=== PATIENT | female | born 1990 | race Caucasian/White ===

== ENCOUNTER 2017-05-16 11:29 | Outpatient (CLI) | payer OTHER ==
[~2017-05-16] VITALS: Ht 160 cm; Wt 63.0 kg
[~2017-05-16 11:29] MED LIST: IRON1TAB75 BU; LEVO500T10 PO; METR500T14 PO; PREN-39 PO; PREN1TAB17 BU
[2017-05-16 12:08] VITALS: BP 97/57; PULSE 60; RESP 18; Ht 160 cm; Wt 63.0 kg
[2017-05-16 12:54] LABS: URINE BLOOD (Dip) POC Negative (NEGATIVE)
[2017-05-16] MEDS ORDERED: TERBUTALINE 1 MG/ML INJ SC ONE (13:00)
[2017-05-16] MEDS ORDERED: LACTATED RINGER'S 1,000 ML IV SCH (13:00)
[2017-05-16] MEDS ORDERED: BETAMET NA PHOS/AC(6 MG/ML) 5ML INJ IM ONE (13:00)
[2017-05-16] MEDS ORDERED: LACTATED RINGER'S 1,000 ML IV ONE (13:00)
[2017-05-16] MEDS ORDERED: TERBUTALINE 1 ML ONE (13:09)
[2017-05-16 13:38] LABS: ADD SCAN DIFF NO
[2017-05-16 13:42] LABS: BASOPHILS % 0.4 % (0.0-2.0); EOSINOPHILS # 0.1 10^3/ul (0.0-0.5); EOSINOPHILS % 1.2 % (0.0-7.0); HEMATOCRIT 28.3 % (37.0-47.0); HEMOGLOBIN 9.7 g/dl (12.0-16.0); LYMPHOCYTES # 1.9 10^3/ul (0.8-2.9); LYMPHOCYTES % 36.6 % (15.0-51.0); MEAN CORPUSCULAR HEMOGLOBIN 29.8 pg (29.0-33.0); MEAN CORPUSCULAR HGB CONC 34.3 g/dl (32.0-37.0); MEAN CORPUSCULAR VOLUME 86.8 fl (82.0-101.0); MEAN PLATELET VOLUME 11.8 fl (7.4-10.4); MONOCYTE # 0.4 10^3/ul (0.3-0.9); MONOCYTES % 8.6 % (0.0-11.0); NEUTROPHIL # 2.7 10^3/ul (1.6-7.5); NEUTROPHILS % 52.8 % (39.0-77.0); PLATELET COUNT 190 10^3/UL (140-415); RED BLOOD COUNT 3.26 10^6/ul (4.20-5.40); RED CELL DISTRIBUTION WIDTH 13.1 % (11.5-14.5); WHITE BLOOD COUNT 5.1 10^3/ul (4.8-10.8)
--- NOTE | 2017-05-16 14:39 | RADRPT ---
PROCEDURE: OB ultrasound for biophysical profile CLINICAL INDICATION: labor TECHNIQUE: Multiple sonographic images of the pelvis were obtained. Transabdominal views of the g ravid uterus are available for review. The images were reviewed on a PACS workstation. COMPARISON: None FINDINGS: breathing movement = 2/2 tone = 2/2 motion = 2/2 GUADALUPE = 2/2 GUADALUPE = 8.4 cm Single live intrauterine with cardiac activity of 154 bpm. position is cephal ic. The placenta is anterior. IMPRESSION: 1. Single live intrauterine gestation. 2. Biophysical profile = 8/8. 3. GUADALUPE = 8.4 cm. RPTAT: HH .Ileana Carrillo MD, MD Date Time Electronically viewed and signed by .Ileana Carrillo MD, on 05/16/2017 14:39 .G/
[2017-05-16 14:45] LABS: UR BACTERIA FEW /HPF (NONE SEEN); UR RBC 4 /HPF (0-5); UR SQUAMOUS EPITHELIAL CELL FEW /HPF (FEW)
[2017-05-16 16:02] LABS: ADD UMIC YES; UR ASCORBIC ACID NEGATIVE (NEGATIVE); UR BILIRUBIN (Dip) NEGATIVE (NEGATIVE); UR BLOOD (Dip) NEGATIVE (NEGATIVE); UR CLARITY CLOUDY (CLEAR); UR COLOR YELLOW (YELLOW); UR GLUCOSE (Dip) NEGATIVE (NEGATIVE); UR KETONES (Dip) NEGATIVE (NEGATIVE); UR LEUKOCYTE ESTERASE (Dip) 3+ Leu/ul (NEGATIVE); UR NITRITE (Dip) NEGATIVE (NEGATIVE); UR SPECIFIC GRAVITY (Dip) 1.009 (1.003-1.030); UR TOTAL PROTEIN (Dip) NEGATIVE (NEGATIVE); UR UROBILINOGEN (Dip) NEGATIVE (NEGATIVE)
--- NOTE | 2017-05-16 16:32 | TRIAGE ---
OB Triage Datetime Report Generated by CPN: 05/16/2017 16:31 Datetime: 05/16/2017 15:30 Stage of : OB Triage Maternal Assessment Level of Consciousness: Fully Conscious Labor Evaluation Frequency: NONE Monitor Mode: External Resting Tone [place]: Relaxed Heart Rate FHR Baseline Rate: 135 Monitor Mode: External US Variability: Moderate 6-25 bpm Accelerations: 15X15 Decelerations: None Pain Assessment Pain Scale: 3 Pain Presence: Intermittent Pain Type: Cramping Pain Location: Abdomen Pain Goal: 3 Pain Relief Measures: Comfort Measures Membrane Status: Intact Pool: Negative Datetime: 05/16/2017 14:30 Stage of : OB Triage Maternal Assessment Level of Consciousness: Fully Conscious Labor Evaluation Frequency: NONE Monitor Mode: External Resting Tone [place]: Relaxed Heart Rate FHR Baseline Rate: 135 Monitor Mode: External US Variability: Moderate 6-25 bpm Accelerations: 15X15 Decelerations: None Pain Assessment Pain Scale: 3 Pain Presence: Intermittent Pain Type: Cramping Pain Location: Abdomen Pain Goal: 3 Pain Relief Measures: Comfort Measures Membrane Status: Intact Pool: Negative Datetime: 05/16/2017 13:30 Stage of : OB Triage Maternal Assessment Level of Consciousness: Fully Conscious Labor Evaluation Frequency: IRREGULAR Monitor Mode: External Duration (sec)2399: 30-90 Quality: Mild Resting Tone [place]: Relaxed Heart Rate FHR Baseline Rate: 135 Monitor Mode: External US Variability: Moderate 6-25 bpm Accelerations: 15X15 Decelerations: None Category: Category I Pain Assessment Pain Scale: 3 Pain Presence: Intermittent Pain Type: Cramping Pain Location: Abdomen Pain Goal: 3 Pain Relief Measures: Comfort Measures Membrane Status: Intact Pool: Negative Datetime: 05/16/2017 12:42 Vaginal Exam Dilatation (cms): 0.0 Effacement (%): 30 Station: -3 Exam By: Dexter DELAROSA Datetime: 05/16/2017 12:37 Labor Evaluation Frequency: OCCAS Monitor Mode: External Duration (sec)2399: 50-70 Quality: Mild Pattern: Normal: <= 5 Contractions in 10 Minutes Resting Tone [place]: Relaxed Interventions: Side to Side Monitor Mode: External US Variability: Moderate 6-25 bpm Accelerations: 15X15 Decelerations: None Category: Category I Datetime: 05/16/2017 12:15 Assessment Type: Admission Assessment EGA: 35.0 Maternal Assessment Level of Consciousness: Fully Conscious DTR's/Clonus: DTRs 2+; No Clonus Headache: Denies Blurred Vision: No Respiratory Effort: Unlabored; Regular Rhythm; Equal Expansion Breath Sounds, Left: Clear and Equal Breath Sounds, Right: Clear and Equal Nausea/Vomiting: Denies RUQ Epigastric Pain: Denies Lower Extremities Edema: None Degree: None Upper Extremities Edema: None Degree: None Facial Edema: None Fall Risk Assessment History of Falling: (0) No Secondary Diagnosis: (0) No Ambulatory Aid: (0) Bedrest/Nurse Assist IV Therapy: (0) No Gait: (0) Normal/Bedrest/Immobile Mental Status: (0) Oriented to Own Ability Fall Score: 0 Fall Risk Score Definition: No Risk: No action required Datetime: 05/16/2017 12:13 Time of Arrival: 05/16/2017 11:25 Arrived By: Ambulatory Arrived From: Home Chief Complaint: uc's Movement: Present Contractions: Regular Time Contractions Began: 05/16/2017 08:00 Rupture of Membranes: Denies Vaginal Bleeding: None Vaginal Discharge: Denies Recent Sexual Intercouse: Denies Abdominal Trauma: Not Applicable Patient Complaints: Contractions; Cramping Time Provider Notified: 05/16/2017 12:48 Provider Notified: DR REED Initial Plan: BPP/CBC/TERB/UA/ BETA/ Datetime: 05/16/2017 12:02 Monitor Mode: External Monitor Mode: External US
--- NOTE | 2017-05-16 16:36 | PN ---
Triage Information Date/Time 05/16/2017 Weeks of Gestation 35+ : 3 Para: 2 Diabetes: none Hypertention: none Additional information 26 y/o female C/O onset of uterine contractions started 2 days ago became intense in AM Denies ROM and vaginal bleeding Objective Vital Signs Date Time Temp Pulse Resp B/P Pulse Ox O2 Delivery O2 Flow Rate FiO2 05/16/17 12:08 98.6 60 18 97/57 Room Air Heart Rate: 150's Heart Rate Comments reactive Contractions: 6-10 Minutes Apart Exam long/ft Results/Medications Result Diagram: 05/16/17 1315 Results 24 hrs Laboratory Tests Test 05/16/17 12:59 05/16/17 13:00 05/16/17 13:15 Bedside Urine pH (LAB) 5.5 Bedside Urine Protein (LAB) Negative Bedside Urine Glucose (UA) Negative Bedside Urine Ketones (LAB) Negative Bedside Urine Blood Negative Bedside Urine Nitrite (LAB) Negative Bedside Urine Leukocyte Esterase (L 2+ H Urine Color YELLOW Urine Clarity CLOUDY A Urine pH 5.0 Urine Specific [place] 1.009 Urine Ketones NEGATIVE Urine Nitrite NEGATIVE Urine Bilirubin NEGATIVE Urine Urobilinogen NEGATIVE Urine Leukocyte Esterase 3+ H Urine Microscopic RBC 4 Urine Microscopic WBC 25 H Urine Squamous Epithelial Cells FEW Urine Bacteria FEW A Urine Hemoglobin NEGATIVE Urine Glucose NEGATIVE Urine Total Protein NEGATIVE White Blood Count 5.1 Red Blood Count 3.26 L Hemoglobin 9.7 L Hematocrit 28.3 L Mean Corpuscular Volume 86.8 Mean Corpuscular Hemoglobin 29.8 Mean Corpuscular Hemoglobin Concent 34.3 Red Cell Distribution Width 13.1 Platelet Count 190 Mean Platelet Volume 11.8 H Neutrophils % 52.8 Lymphocytes % 36.6 Monocytes % 8.6 Eosinophils % 1.2 Basophils % 0.4 Nucleated Red Blood Cells % 0.0 Neutrophils # 2.7 Lymphocytes # 1.9 Monocytes # 0.4 Eosinophils # 0.1 Basophils # 0.0 Nucleated Red Blood Cells # 0.0 Medications Current Medications Lactated Ringer's (Lr) 1,000 ml @ 125 mls/hr Q8H IV ; Start 05/16/17 at 13:00 Assessment/Plan labor resolved by SQ terbutaline ans IV hydration Steroids given will repeat in 24 hours F/U iout patient JOHN DOHERTY MD May 16, 2017 16:35
== END 2017-05-16 16:45 | disposition home or self-care (01) ==
LOC: OBT 11:29 → L-D 11:30 → OBT 16:45
PROVIDERS: ATTEND Obstetrics & Gynecology
DX: O62.9 Abnormality of forces of labor, unspecified (principal); Z3A.35 35 weeks gestation of pregnancy
CPT/HCPCS: 76818; 81001; 85025; 96360; 96361; J0702; J3105; J7120; Z7500; 81003; G0463

== ENCOUNTER 2017-05-17 13:06 | Outpatient (CLI) | payer OTHER ==
[~2017-05-17] VITALS: Ht 160 cm; Wt 63.8 kg
[~2017-05-17 13:06] MED LIST changes: -LEVO500T10 PO; -METR500T14 PO; -PREN-39 PO
[2017-05-17 13:23] VITALS: Ht 160 cm; Wt 63.8 kg
[2017-05-17 13:24] VITALS: BP 89/53; PULSE 91; RESP 18
[2017-05-17] MEDS ORDERED: BETAMET NA PHOS/AC(6 MG/ML) 5ML INJ IM ONE (13:30)
--- NOTE | 2017-05-17 13:57 | PN ---
Triage Information Date/Time 05/17/2017 Weeks of Gestation 35.1 : 4 Para: 2 Diabetes: none Hypertention: none Additional information here for 2nd dose of betamethasone Objective Vital Signs Date Time Temp Pulse Resp B/P Pulse Ox O2 Delivery O2 Flow Rate FiO2 05/17/17 13:24 98.2 91 18 89/53 Room Air Contractions: None Assessment/Plan contractions 2nd sode of betamethsone JOHN Dietz MD May 17, 2017 13:57
--- NOTE | 2017-05-17 14:01 | TRIAGE ---
OB Triage Datetime Report Generated by CPN: 05/17/2017 14:01 Datetime: 05/17/2017 13:58 Maternal Assessment Level of Consciousness: Fully Conscious Labor Evaluation Frequency: IRREGULAR Monitor Mode: External Duration (sec)2399: 50-80 Quality: Mild Pattern: Normal: <= 5 Contractions in 10 Minutes Resting Tone [place]: Relaxed Contraction Comments: pt denies feeling uc's Heart Rate FHR Baseline Rate: 125 Monitor Mode: External US Variability: Moderate 6-25 bpm Accelerations: 15X15 Decelerations: None Category: Category I Pain Assessment Pain Scale: 0 Pain Goal: 3 Vaginal Exam Membrane Status: Intact Vaginal Bleeding: None Datetime: 05/17/2017 13:32 Assessment Type: Admission Assessment Maternal Assessment Level of Consciousness: Fully Conscious DTR's/Clonus: DTRs 2+; No Clonus Headache: Denies Blurred Vision: No Respiratory Effort: Unlabored; Regular Rhythm; Equal Expansion Breath Sounds, Left: Clear and Equal Breath Sounds, Right: Clear and Equal Nausea/Vomiting: Denies RUQ Epigastric Pain: Denies Lower Extremities Edema: None Degree: None Upper Extremities Edema: None Degree: None Facial Edema: None Fall Risk Assessment History of Falling: (0) No Secondary Diagnosis: (0) No Ambulatory Aid: (0) Bedrest/Nurse Assist IV Therapy: (0) No Gait: (0) Normal/Bedrest/Immobile Mental Status: (0) Oriented to Own Ability Fall Score: 0 Fall Risk Score Definition: No Risk: No action required Labor Evaluation Frequency: IRREGULAR Monitor Mode: External Duration (sec)2399: 50-80 Quality: Mild Pattern: Normal: <= 5 Contractions in 10 Minutes Resting Tone [place]: Relaxed Interventions: Side to Side Monitor Mode: External US Variability: Moderate 6-25 bpm Accelerations: 15X15 Decelerations: None Category: Category I Datetime: 05/17/2017 13:30 Time of Arrival: 05/17/2017 13:05 EGA: 35.1 Arrived By: Ambulatory Arrived From: Home Chief Complaint: PT CAME IN FOR 2ND DOSE OF BETAMETHASONE Movement: Present Contractions: Denies/Absent Rupture of Membranes: Denies Vaginal Bleeding: None Vaginal Discharge: Denies Recent Sexual Intercouse: Denies Abdominal Trauma: Not Applicable Patient Complaints: Other Time Provider Notified: 05/17/2017 13:45 Provider Notified: cassandra Initial Plan: NST Datetime: 05/17/2017 13:18 Monitor Mode: External Monitor Mode: External US Datetime: 05/16/2017 16:27 Stage of : OB Triage Maternal Assessment Level of Consciousness: Fully Conscious Labor Evaluation Frequency: 5UC/HR Monitor Mode: External Duration (sec)2399: 30-60 Quality: Mild Resting Tone [place]: Relaxed Heart Rate FHR Baseline Rate: 135 Monitor Mode: External US Variability: Moderate 6-25 bpm Accelerations: 15X15 Decelerations: None Pain Assessment Pain Scale: 3 Pain Presence: Intermittent Pain Type: Cramping Pain Location: Abdomen Pain Goal: 3 Pain Relief Measures: Comfort Measures Vaginal Exam Membrane Status: Intact Pool: Negative Datetime: 05/16/2017 12:15 EGA: 35.0 Fall Score: 0 Fall Risk Score Definition: No Risk: No action required
== END 2017-05-17 14:05 | disposition home or self-care (01) ==
LOC: OBT 13:06 → L-D 13:07 → OBT 14:05
PROVIDERS: ATTEND Obstetrics & Gynecology
DX: O62.9 Abnormality of forces of labor, unspecified (principal); Z3A.35 35 weeks gestation of pregnancy
CPT/HCPCS: 96372; J0702; Z7500; G0463

== ENCOUNTER 2017-06-19 13:53 | Inpatient (IN) | payer OTHER ==
[~2017-06-19] VITALS: Ht 160 cm; Wt 62.0 kg
[~2017-06-19 13:53] MED LIST changes: +FERR-49; +LEVO500T10 PO; +METR500T14 PO; +PREN-39 PO; +PREN1TAB49
[2017-06-19 14:23] VITALS: BP 109/63; PULSE 82; RESP 20
[2017-06-19 14:25] VITALS: Ht 160 cm; Wt 62.0 kg
[2017-06-19] MEDS ORDERED: OXYTOCIN 30 UNITS/LR 500 ML IV PRN (15:00)
[2017-06-19] MEDS ORDERED: LIDOCAINE 1% (MPF) 30 ML INJ INJ PRN (15:00)
[2017-06-19] MEDS ORDERED: OXYTOCIN 30 UNITS/LR 500 ML IV SCH ×2 (15:00)
[2017-06-19] MEDS ORDERED: MINERAL OIL LIGHT 10 ML VIAL TOP PRN (15:00)
[2017-06-19] MEDS ORDERED: MISOPROSTOL 200 MCG TAB PR PRN (15:00)
[2017-06-19] MEDS ORDERED: IBUPROFEN 600 MG TAB PO PRN (15:00)
[2017-06-19] MEDS ORDERED: LACTATED RINGER'S 1,000 ML IV PRN (15:00)
[2017-06-19] MEDS ORDERED: CARBOPROST 250 MCG INJ IM PRN (15:00)
[2017-06-19] MEDS ORDERED: BUTORPHANOL 2 MG INJ IV PRN (15:00)
[2017-06-19] MEDS ORDERED: METHYLERGONOVINE 0.2 MG INJ IM PRN (15:00)
[2017-06-19] MEDS: LACTATED RINGER'S 1,000 ML IV SCH ×2 (15:14→20:01)
--- NOTE | 2017-06-19 15:36 | TRIAGE ---
OB Triage Datetime Report Generated by CPN: 06/19/2017 15:36 Datetime: 06/19/2017 14:42 Stage of : OB Triage Datetime: 06/19/2017 14:10 Labor Evaluation Frequency: 6-7 Monitor Mode: External Duration (sec)2399: 50 Quality: Moderate Pattern: Normal: <= 5 Contractions in 10 Minutes Resting Tone [place]: Relaxed Heart Rate FHR Baseline Rate: 135 Monitor Mode: External US FHR Baseline Changes: No Baseline Change Variability: Moderate 6-25 bpm Accelerations: 15X15 Decelerations: None Category: Category I Pain Assessment Pain Scale: 7 Pain Presence: Intermittent Pain Type: Cramping; Contraction; Pressure Pain Location: Abdomen; Back Pain Goal: 7 Pain Relief Measures: Comfort Measures Vaginal Exam Dilatation (cms): 2.5 Effacement (%): 70 Station: -1 Exam By: JOAN PRYOR Membrane Status: Intact Vaginal Bleeding: None Cervix, Consistency: Firm Cervix, Position: Posterior Presentation 'A': Cephalic Lie 'A': Longitudinal Datetime: 06/19/2017 13:45 Time of Arrival: 06/19/2017 13:45 EGA: 39.6 Arrived By: Wheelchair Arrived From: Home Chief Complaint: UC'S Movement: Present Contractions: Regular Time Contractions Began: 06/19/2017 09:00 Contractions: 6-7 Rupture of Membranes: Denies Vaginal Bleeding: None Vaginal Discharge: Present Abdominal Trauma: Not Applicable Patient Complaints: Contractions Additional Patient Complaints: NONE Initial Plan: EFM VE CALL MD Datetime: 05/17/2017 13:32 Fall Risk Assessment Fall Score: 0 Fall Risk Score Definition: No Risk: No action required Datetime: 05/17/2017 13:30 EGA: 35.1 Datetime: 05/16/2017 12:15 EGA: 35.0 Fall Risk Assessment Fall Score: 0 Fall Risk Score Definition: No Risk: No action required
[2017-06-19 16:07] LABS: WHITE BLOOD COUNT 6.1 10^3/ul (4.8-10.8)
[2017-06-19 16:08] LABS: BASOPHILS % 0.7 % (0.0-2.0); EOSINOPHILS # 0.1 10^3/ul (0.0-0.5); EOSINOPHILS % 0.8 % (0.0-7.0); LYMPHOCYTES # 2.6 10^3/ul (0.8-2.9); MEAN CORPUSCULAR HEMOGLOBIN 29.6 pg (29.0-33.0); MEAN CORPUSCULAR HGB CONC 34.3 g/dl (32.0-37.0); MEAN CORPUSCULAR VOLUME 86.4 fl (82.0-101.0); MEAN PLATELET VOLUME 12.4 fl (7.4-10.4); MONOCYTE # 0.5 10^3/ul (0.3-0.9); MONOCYTES % 8.9 % (0.0-11.0); NEUTROPHILS % 46.1 % (39.0-77.0); PLATELET COUNT 189 10^3/UL (140-415); RED BLOOD COUNT 4.05 10^6/ul (4.20-5.40); RED CELL DISTRIBUTION WIDTH 13.6 % (11.5-14.5)
[2017-06-19 16:24] LABS: PROTIME 13.2 Sec (12.2-14.2)
[2017-06-19 16:25] LABS: PARTIAL THROMBOPLASTIN TIME 33.6 Sec (25.0-35.0)
--- NOTE | 2017-06-19 17:54 | HP ---
Date/Time of Note Date/Time of Note DATE: 06/19/17 TIME: 17:51 OB - History Hx of Present Free Text/Dictation admitted in [facility] at 39.6 weeks Chief Complaint: labor pains Last Menstrual Period: Sep 13, 2016 Estimated Due Date: Jun 20, 2017 : 4 Para: 2 Spontaneous : 1 Care: Good Care Ultrasounds: Normal mid trimester US Obstetrical Complications: None Medical Complications: None Other Concerns: PCN allergic Past Family/Social History * Past Medical, Surgical, Family and Obstetric Histories reviewed from chart. Blood Type: O+ Rubella: immune RPR/VDRL: Negative GBS Status: Negative HBsAG: Negative OB Admission Exam Vital Signs Vital Signs Vital Signs Date Time Temp Pulse Resp B/P Pulse Ox O2 Delivery O2 Flow Rate FiO2 06/19/17 14:23 97.8 82 20 109/63 98 Room Air Physical Exam HEENT: WNL Heart: Rhythm Normal Lungs: Clear, Equal Abdomen: WNL Extremities: Normal Reflexes: Normal Cervical Dilatation: 2cm Effacement: 75% Station: -3 Membranes: Intact Heart Rate: 140's Accelerations: Accelerations Present Decelerations: No Decelerations Varibility: Marked Contractions on Admission: < 5 Minutes Apart Date/Time Contractions Began: 06/19/2017 0900 AM Frequency of Contractions: q 4 Duration: >45 seconds Intensity: Moderate Last 72 hours Lab Results CBC & BMP 06/19/17 15:13 OB Assessment/Plan Other Assessment: term gestation labor pains Other plan: proceed with spontaneous labor JOHN DOHERTY MD Jun 19, 2017 17:54
[2017-06-20] MEDS: LACTATED RINGER'S 1,000 ML IV SCH (03:56)
[2017-06-20] MEDS ORDERED: FENTAnyl 2MCG/ML-ROPIV 0.2% 100 ML ONE (07:33)
[2017-06-20] MEDS ORDERED: FENTAnyl 2MCG/ML-ROPIV 0.2% 100 ML BAG EPI SCH (10:00)
[2017-06-20] MEDS ORDERED: NALOXONE (0.4 MG/ML) INJ IV PRN (10:00)
--- NOTE | 2017-06-20 11:58 | LDN ---
Date/Time of Note Date/Time of Note DATE: 06/20/17 TIME: 11:55 Delivery Summary Normal spontaneous vaginal delivery of a female over intact perineum Weeks of Gestation 40 weeks Placenta Delivered: Spontaneously, Intact & Complete Meconium: none Episiotomy: No Perineal laceration: 0 Anesthesia type: Epidural Estimated blood loss: 300 Sponge & Needle done & correct: Yes All needle counts correct: Yes Any foreign bodies felt in the: No Problems: Infant Delivery Information Apgars 1 Minute: 9 5 Minute: 9 Suctioning Nose & mouth suctioned at gl[place]: Yes Delee suction performed: No Umbilical Cord Umbilical cord with: 3 Vessels Cord presentations: nuchal cord Nuchal cord present X: 1 Cord Blood was obtained: Yes Mother & Baby Disposition Disposition Mom & Baby to Maternity; Good: Yes (Mother and baby were recovered in good condition) Mom transferred to: Other (Maternity) Baby to NICU: No JOHN DOHERTY MD Jun 20, 2017 11:58
[2017-06-20 13:20] VITALS: BP 125/62; PULSE 63; RESP 18
[2017-06-20] MEDS ORDERED: BENZOCAINE 20% 56 ML SPRAY TOP PRN (13:30)
[2017-06-20] MEDS ORDERED: DIBUCAINE 1% 30 GM OINT TOP PRN (13:30)
[2017-06-20] MEDS ORDERED: MISOPROSTOL 200 MCG TAB PR PRN (13:30)
[2017-06-20] MEDS ORDERED: ZOLPIDEM 5 MG TAB PO PRN (13:30)
[2017-06-20] MEDS ORDERED: WITCH HAZEL/GLYCERIN PAD PR PRN (13:30)
[2017-06-20] MEDS ORDERED: METHYLERGONOVINE 0.2 MG INJ IM PRN (13:30)
[2017-06-20] MEDS ORDERED: CARBOPROST 250 MCG INJ IM PRN (13:30)
[2017-06-20] MEDS ORDERED: OXYTOCIN 30 UNITS/LR 500 ML IV PRN (13:30)
[2017-06-20] MEDS ORDERED: HYDROCODONE/APAP (5/325) TAB PO PRN ×2 (13:30)
[2017-06-20] MEDS ORDERED: LANOLIN 7 GM TUBE TOP PRN (13:30)
[2017-06-20 13:50] VITALS: BP 128/65; PULSE 66; RESP 19
[2017-06-20] MEDS: CEPHALEXIN 500 MG CAP PO SCH ×3 (14:00→23:54)
[2017-06-20 16:00] VITALS: BP 129/66; PULSE 66; RESP 18
[2017-06-20] MEDS: LACTATED RINGER'S 1,000 ML IV* SCH ×2 (16:04→23:54)
[2017-06-20] MEDS: IBUPROFEN 600 MG TAB PO SCH ×2 (17:19→23:53)
[2017-06-20 19:45] VITALS: BP 93/49; PULSE 74; RESP 17
[2017-06-20] MEDS: SENNA/DOCUSATE NA (8.6MG/50MG) TAB PO SCH (20:33)
[2017-06-20] MEDS: MAGNESIUM HYDROXIDE 30ML CUP PO SCH (20:33)
[2017-06-21 00:15] VITALS: BP 90/54; PULSE 56; RESP 17
[2017-06-21 04:15] VITALS: BP 96/61; PULSE 53; RESP 16
[2017-06-21] MEDS: LACTATED RINGER'S 1,000 ML IV* SCH ×3 (05:07→21:07)
[2017-06-21] MEDS: CEPHALEXIN 500 MG CAP PO SCH ×4 (05:35→23:53)
[2017-06-21] MEDS: IBUPROFEN 600 MG TAB PO SCH ×4 (05:35→23:53)
[2017-06-21 07:20] VITALS: BP 106/61; PULSE 50; RESP 19
[2017-06-21 07:48] LABS: WHITE BLOOD COUNT 10.5 10^3/ul (4.8-10.8)
[2017-06-21 07:49] LABS: BASOPHIL # 0.1 10^3/ul (0.0-0.1); BASOPHILS % 0.5 % (0.0-2.0); EOSINOPHILS # 0.1 10^3/ul (0.0-0.5); EOSINOPHILS % 0.9 % (0.0-7.0); HEMATOCRIT 31.6 % (37.0-47.0); HEMOGLOBIN 10.3 g/dl (12.0-16.0); LYMPHOCYTES # 3.4 10^3/ul (0.8-2.9); MEAN CORPUSCULAR HGB CONC 32.6 g/dl (32.0-37.0); MEAN PLATELET VOLUME 12.4 fl (7.4-10.4); MONOCYTE # 0.8 10^3/ul (0.3-0.9); MONOCYTES % 7.5 % (0.0-11.0); NEUTROPHILS % 58.6 % (39.0-77.0); PLATELET COUNT 145 10^3/UL (140-415); RED BLOOD COUNT 3.55 10^6/ul (4.20-5.40); RED CELL DISTRIBUTION WIDTH 14.5 % (11.5-14.5)
[2017-06-21] MEDS: MAGNESIUM HYDROXIDE 30ML CUP PO SCH ×2 (09:21→21:34)
[2017-06-21] MEDS: SENNA/DOCUSATE NA (8.6MG/50MG) TAB PO SCH ×2 (09:21→21:35)
--- NOTE | 2017-06-21 14:18 | DS ---
Date/Time of Note Date/Time of Note Home on June 22 DATE: 06/21/17 TIME: 14:17 Obstetrical Discharge Record Final Diagnosis Final Diagnosis: Term delivered Other Final Diagnosis Status post vaginal delivery Vaginal Delivery Obstetrical Delivery: Spontaneous Condition on Discharge Physical Assessment Last Vitals: See nurse's notes Voiding: Yes Bowel Movement: Yes Breast: Soft, non-tender, Filling Fundus: Firm Abdomen and Incision: Soft bowel sounds present Episiotomy: Not applicable Calf Tenderness: No Patient Condition: Good JOHN DOHERTY MD Jun 21, 2017 14:18
--- NOTE | 2017-06-21 14:19 | PD.PPDC ---
ICT PROGRAMMER Discharge Instruction Provider Information Physician Information 26-year-old female had vaginal delivery Diagnosis Final Diagnosis: Status post vaginal delivery Condition Patient Condition: Good Diet Diet: Resume Regular Diet Activity/Restrictions Activity: Normal Activity May Shower Restrictions: Nothing in the Vagina Return to Work or School: Aug 07, 2017 Follow-up Follow-up with Physician: 4, Week/Weeks (In clinic) Return to clinic for OB Instructions: Breast Tenderness Depression JOHN DOHERTY MD Jun 21, 2017 14:19
[2017-06-21] MEDS ORDERED: IBUP-1542 PO (14:20)
[2017-06-21 16:09] VITALS: BP 111/69; PULSE 60; RESP 18
[2017-06-21 20:00] VITALS: BP 99/63; PULSE 75; RESP 18
[2017-06-22 04:00] VITALS: BP 99/62; PULSE 65; RESP 18
[2017-06-22] MEDS: IBUPROFEN 600 MG TAB PO SCH ×2 (05:36→12:38)
[2017-06-22] MEDS: CEPHALEXIN 500 MG CAP PO SCH ×2 (05:36→12:38)
[2017-06-22 08:10] VITALS: BP 87/56; PULSE 54; RESP 16
[2017-06-22] MEDS: MAGNESIUM HYDROXIDE 30ML CUP PO SCH (08:50)
[2017-06-22] MEDS: SENNA/DOCUSATE NA (8.6MG/50MG) TAB PO SCH (08:50)
[2017-06-22] MEDS ORDERED: DIPHTH/TET/ACEL PERTUSS (ADULT) 0.5 ML VIAL IM* ONE (09:00)
[2017-06-22] MEDS ORDERED: MEASLES,MUMPS,RUBELLA VACCINE INJ SC* ONE (09:00)
[2017-06-22] MEDS ORDERED: VARICELLA VACCINE LIVE/PF 1,350 UNIT/0.5 ML ML SC* ONE (09:00)
== END 2017-06-22 15:42 | disposition home or self-care (01) | DRG 775 ==
LOC: L-D 13:53 → OBT 13:53 → L-D 14:42 → PP1 06-20 13:17
PROVIDERS: ADMIT Obstetrics & Gynecology; ATTEND Obstetrics & Gynecology
PROC: 10E0XZZ Delivery of Products of Conception, External Approach (ICD-10-PCS; principal; 2017-06-20)
PROC: 3E033VJ Introduction of Other Hormone into Peripheral Vein, Percutaneous Approach (ICD-10-PCS; 2017-06-20)
DX: O48.0 Post-term pregnancy (principal); O69.81X0 Labor and delivery complicated by cord around neck, without compression, not applicable or unspecified; Z3A.40 40 weeks gestation of pregnancy; Z37.0 Single live birth
CPT/HCPCS: 62319; 85025; 85610; 85730; 86592; 86850; 86900; 86901; 87340; 90715; 90716; G0463; J0595; J2590; J3010; J7120

== ENCOUNTER 2018-03-21 09:49 | Emergency (ER) | END 2018-03-21 12:43 | disposition home or self-care (01) ==

== ENCOUNTER 2019-01-29 10:08 | Emergency (ER) | payer OTHER ==
[~2019-01-29] VITALS: Wt 70.0 kg
[~2019-01-29 10:08] MED LIST changes: -FERR-49; +IBUP-1542 PO; -LEVO500T10 PO; -METR500T14 PO; +NAPR-985 PO; +NITR-58 PO; -PREN-39 PO; -PREN1TAB49
[2019-01-29 10:18] VITALS: BP 113/54; PULSE 80; RESP 18
[2019-01-29] MEDS ORDERED: ONDANSETRON (ODT) 4 MG TAB ODT STA (10:31)
[2019-01-29] MEDS ORDERED: DICY10CA40 PO (10:33)
[2019-01-29] MEDS ORDERED: ONDA4TAB14 PO (10:34)
[2019-01-29] MEDS ORDERED: ACET500C5 PO (10:34)
--- NOTE | 2019-01-29 10:52 | ERD ---
ER Documentation Chief Complaint Chief Complaint DIARRHEA SINCE MONDAY HPI Patient is a 28-year-old female with no past medical history presents the ER for concerns of diarrhea times 3 days. Patient states her stools are green color, nonbloody, reports 2-3 episodes per day. She denies any fevers or chills. She denies any vomiting however she does feel nauseous. Patient states her mother also had similar symptoms have now resolved. Patient denies any recent travel. Patient denies any recent antibiotic use. Patient admits to generalized crampy abdominal pain which comes and goes. Patient denies any chest pain or shortness of breath. Patient is able to tolerate p.o. fluids and is currently drinking chocolate milk in the exam room. Patient states her last menstrual period was 01-06-19, denies . ROS All systems reviewed and are negative except as per history of present illness. Medications Home Meds Active Scripts Ondansetron (Ondansetron Odt) 4 Mg Tab.rapdis, 4 MG PO Q6H PRN for NAUSEA AND/OR VOMITING, #10 TAB Prov:DENISHA BROWNLEE PA-C 01/29/19 Acetaminophen* (Tylophen*) 500 Mg Capsule, 1 CAP PO Q6H PRN for PAIN AND OR ELEVATED TEMP, #20 CAP Prov:DENISHA BROWNLEE PA-C 01/29/19 Dicyclomine HCl (Dicyclomine HCl) 10 Mg Capsule, 10 MG PO TID PRN for ABDOMINAL CRAMPING, #15 CAP Prov:DENISHA BROWNLEE PA-C 01/29/19 Naproxen* (Naprosyn*) 500 Mg Tablet, 500 MG PO BID PRN for PAIN AND/OR INFLAMMATION, #30 TAB Prov:JAYNE CLARKE PA-C 03/21/18 Nitrofurantoin Monohyd Macrocr* (Macrobid*) 100 Mg Capsr, 100 MG PO BID for 7 Days, CAP Prov:JAYNE CLARKE PA-C 03/21/18 Ibuprofen* (Ibuprofen*) 600 Mg Tablet, 600 MG PO Q6, #30 TAB 0 Refills Prov:JOHN DOHERTY MD 06/21/17 Reported Medications Iron &Iron Asp Gly/Fa/Mv,Min38 (IRON TABLET) 1 Each Tablet, 1 EACH BU DAILY 10/10/13 Vit-Iron Fumarate-FA ( Tablet) 1 Each Tablet, 1 EACH BU DAILY 10/10/13 Allergies Allergies: Coded Allergies: Penicillins (Verified Allergy, Unknown, S/W RN- NOT ALLERGIC TO NITROFURATION, PCN= RASH AND ITCHING, 03/21/18) 06/19 - RN CALLED ( VERO)- PT STATED SHE IS NOT ALLERGIC TO NITROFURATOIN PMhx/Soc History of Surgery: No Anesthesia Reaction: No Hx Neurological Disorder: No Hx Respiratory Disorders: No Hx Cardiac Disorders: No Hx Psychiatric Problems: No Hx Miscellaneous Medical Probl: No Hx Alcohol Use: No Hx Substance Use: No Hx Tobacco Use: No Smoking Status: Never smoker FmHx Family History: No diabetes Physical Exam Vitals Vital Signs Date Temp Pulse Resp B/P (MAP) Pulse Ox O2 O2 Flow FiO2 Time Delivery Rate 01/29/19 98.1 80 18 113/54 99 10:18 (73) Physical Exam GENERAL: Well-developed, well-nourished female. Appears in no acute distress. Speaking in full sentences,. HEAD: Normocephalic, atraumatic. EYES: Pupils are equally reactive bilaterally. EOMs grossly intact. No conjunctival erythema. ENT: Moist mucous membranes. No uvula deviation. No kissing tonsils. NECK: Supple. No meningismus. Normal range of motion of the neck. LUNG: Clear to auscultation bilaterally. No rhonchi, wheezing, rales or coarse breath sounds. HEART: Regular rate and rhythm. No murmurs, rubs or gallops. ABDOMEN: Soft, and nondistended. Minimally tender to palpation in all 4 quadrants. Positive bowel sounds in all four quadrants. No rebound tenderness, no guarding. (-) McBurney's point tenderness. No CVA tenderness. EXTREMITIES: Equal pulses bilaterally. No peripheral clubbing, cyanosis or edema. No unilateral leg swelling. NEUROLOGIC: Alert and oriented. Moving all four extremities without any diffi culty. Normal speech. Steady gait. SKIN: Normal color. Warm and dry. No rashes or lesions. Results 24 hrs Current Medications Medications Dose Sig/Rubin Start Time Status Last (Trade) Ordered Route PRN Stop Time Admin Dose Reason Admin Dicyclomine 10 mg ONCE ONCE 01/29/19 01/29/19 HCl PO 11:00 01/29/19 10:45 (Bentyl) 11:01 Ondansetron 4 mg ONCE STAT 01/29/19 DC 01/29/19 HCl (Zofran ODT 10:31 01/29/19 10:45 Odt) 10:32 Procedures/MDM MEDICAL DECISION MAKING: This is a 28-year-old female who presents to the ER for concerns of generalized abdominal pain and diarrhea times 3 days. Patient denies any fevers. Vital signs were reviewed. Patient is afebrile. On abdominal exam, patient had mild generalized tenderness in all 4 quadrants. Patient had no rebound or guarding. Patient is tolerating p.o. fluids without any difficulty. Patient was given Zofran here in the ER for her nausea. Patient was also given Bentyl for her abdominal cramps. Patient was advised to stay hydrated and avoid dairy products. Patient was advised on BRAT diet. Patient advised to follow-up with primary care physician if diarrhea persists for stool studies on outpatient basis. Patient likely has a viral gastroenteritis. Differential diagnosis included but was not limited to acute coronary syndrome, AAA, mesenteric isc hemia, lower lobe pneumonia, DKA, bowel perforation, cholecystitis, choledocholithiasis, ascending cholangitis, hepatic abscess, pancreatitis, PUD, gastritis, GERD, splenic rupture, diverticulitis, UTI, pyelonephritis, nephrolithiasis, appendicitis, constipation, , ectopic , PID, ovarian torsion or tubo-ovarian abscess. Patient was nontoxic, [id number] prior to discharge. PRESCRIPTIONS: Bentyl, Zofran, Tylenol DISCHARGE: At this time, patient is stable for discharge and outpatient management. I have instructed the patient to follow-up with his/her primary care physician in 1-2 days. I have instructed the patient to promptly return to the ER at any time for any new or worsening symptoms including increased pain, nausea, vomiting, diarrhea, fever, weakness or LOC. The patient and/or family expressed understanding of and agreement with this plan. All questions were answered. Home care instructions were provided. Disclaimer: Inadvertent spelling and grammatical errors are likely due to EHR/dictation software use and do not reflect on the overall quality of patient care. Also, please note that the electronic time recorded on this note does not necessarily reflect the actual time of the patient encounter. Departure Diagnosis: Primary Impression: Diarrhea Diarrhea type: unspecified type Qualified Codes: R19.7 - Diarrhea, unspecified Condition: Fair Patient Instructions: Treating Diarrhea Referrals: [facility] YOU HAVE RECEIVED A MEDICAL SCREENING EXAM AND THE RESULTS INDICATE THAT YOU DO NOT HAVE A CONDITION THAT REQUIRES URGENT TREATMENT IN THE EMERGENCY DEPARTMENT. FURTHER EVALUATION AND TREATMENT OF YOUR CONDITION CAN WAIT UNTIL YOU ARE SEEN IN YOUR DOCTORS OFFICE WITHIN THE NEXT 1-2 DAYS. IT IS YOUR RESPONSIBILITY TO MAKE AN APPOINTMENT FOR FOLOW-UP CARE. IF YOU HAVE A PRIMARY DOCTOR --you should call your primary doctor and schedule an appointment IF YOU DO NOT HAVE A PRIMARY DOCTOR YOU CAN CALL OUR PHYSICIAN REFERRAL HOTLINE AT IF YOU CAN NOT AFFORD TO SEE A PHYSICIAN YOU CAN CHOSE FROM THE FOLLOWING [facility] [address] [facility]. [facility] [address] [facility]. [facility] [address] [facility] [address] [facility] [facility] [address] [facility]. [facility] [address] [facility]. [facility] YOU HAVE RECEIVED A MEDICAL SCREENING EXAM AND THE RESULTS INDICATE THAT YOU DO NOT HAVE A CONDITION THAT REQUIRES URGENT TREATMENT IN THE EMERGENCY DEPARTMENT. FURTHER EVALUATION AND TREATMENT OF YOUR CONDITION CAN WAIT UNTIL YOU ARE SEEN IN YOUR DOCTORS OFFICE WITHIN THE NEXT 1-2 DAYS. IT IS YOUR RESPONSIBILITY TO MAKE AN APPOINTMENT FOR FOLOW-UP CARE. IF YOU HAVE A PRIMARY DOCTOR --you should call your primary doctor and schedule and appointment IF YOU DO NOT HAVE A PRIMARY DOCTOR YOU CAN CALL OUR PHYSICIAN REFERRAL HOTLINE AT . IF YOU CAN NOT AFFORD TO SEE A PHYSICIAN YOU CAN CHOSE FROM THE FOLLOWING [facility] INSTITUTIONS: [facility] [address] [place] [address] [facility] [address] [place] [address] [facility] + [facility] [address] [place] [address] Additional Instructions: If you continue to have diarrhea and 2-3 days for now, follow-up with your primary care physician for stool studies on outpatient basis. Call your primary care doctor TOMORROW for an appointment during the next 1-2 days.See the doctor sooner or return here if your condition worsens before your appointment time. DENISHA BROWNLEE PA-C Jan 29, 2019 10:52
[2019-01-29] MEDS ORDERED: DICYCLOMINE 10 MG CAP PO ONE (11:00)
== END 2019-01-29 11:28 | disposition home or self-care (01) ==
LOC: FTE 10:08
DX: R19.7 Diarrhea, unspecified (principal); R11.0 Nausea
CPT/HCPCS: Z7502; Z7610; 99283

== ENCOUNTER 2019-01-31 09:34 | Emergency (ER) | payer OTHER ==
[~2019-01-31] VITALS: Ht 162.6 cm; Wt 62.6 kg
[~2019-01-31 09:34] MED LIST changes: +ACET500C5 PO; +DICY10CA40 PO; +ONDA4TAB14 PO
[2019-01-31 09:42] VITALS: Ht 162.6 cm; Wt 62.6 kg
[2019-01-31] MEDS ORDERED: BELLADONNA/PHENOBARBITAL TAB PO STA (11:59)
[2019-01-31] MEDS ORDERED: SOD CHLORIDE 0.9% 1,000 ML IV STA (11:59)
[2019-01-31] MEDS ORDERED: LIDOCAINE/MYLANTA 40 ML BTL PO STA (11:59)
--- NOTE | 2019-01-31 12:05 | ERD ---
ER Documentation Chief Complaint Chief Complaint abd/pain,diarrhea x 6 days, was here last monday same complaint HPI 28-year-old female presents with complaint of diarrhea and diffuse abdominal pain for the past 6 days. Patient was just here 2 days ago with same complaint but states that the medication she is getting have not been working. States the abdominal pain is located in the lower abdomen. In addition she states that there is some blood in her diarrhea. Able to hold down liquids without problem. Denies history of travel. Denies any vomiting, fevers, dysuria, vaginal discharge. Allergic to penicillin. History of anemia. ROS All systems reviewed and are negative except as per history of present illness. Medications Home Meds Active Scripts Hydrocodone/Acetaminophen (Cuthbert 5-325 Tablet) 1 Each Tablet, 1 TAB PO Q6H PRN for PAIN, #10 TAB Prov:MARTY JIMENEZ 01/31/19 Metronidazole* (Flagyl*) 500 Mg Tablet, 500 MG PO BID for diarrhea for 7 Days, TAB Prov:MARTY JIMENEZ 01/31/19 Azithromycin* (Zithromax*) 500 Mg Tablet, 500 MG PO DAILY for diarrhea for 3 Days, TAB Prov:MARTY JIMENEZ 01/31/19 Ondansetron (Ondansetron Odt) 4 Mg Tab.rapdis, 4 MG PO Q6H PRN for NAUSEA AND/OR VOMITING, #10 TAB Prov:DENISHA BROWNLEE PA-C 01/29/19 Acetaminophen* (Tylophen*) 500 Mg Capsule, 1 CAP PO Q6H PRN for PAIN AND OR ELEVATED TEMP, #20 CAP Prov:DENISHA BROWNLEEC 01/29/19 Dicyclomine HCl (Dicyclomine HCl) 10 Mg Capsule, 10 MG PO TID PRN for ABDOMINAL CRAMPING, #15 CAP Prov:DENISHA BROWNLEEC 01/29/19 Naproxen* (Naprosyn*) 500 Mg Tablet, 500 MG PO BID PRN for PAIN AND/OR INFLAMMATION, #30 TAB Prov:JAYNE CLARKEC 03/21/18 Nitrofurantoin Monohyd Macrocr* (Macrobid*) 100 Mg Capsr, 100 MG PO BID for 7 Days, CAP Prov:JAYNE CALRKEC 03/21/18 Ibuprofen* (Ibuprofen*) 600 Mg Tablet, 600 MG PO Q6, #30 TAB 0 Refills Prov:JOHN DOHERTY MD 06/21/17 Reported Medications Iron &Iron Asp Gly/Fa/Mv,Min38 (IRON TABLET) 1 Each Tablet, 1 EACH BU DAILY 10/10/13 Vit-Iron Fumarate-FA ( Tablet) 1 Each Tablet, 1 EACH BU DAILY 10/10/13 Allergies Allergies: Coded Allergies: Penicillins (Verified Allergy, Unknown, S/W RN- NOT ALLERGIC TO NITROFURATION, PCN= RASH AND ITCHING, 03/21/18) 06/19 - RN CALLED ( [facility])- PT STATED SHE IS NOT ALLERGIC TO NITROFURATOIN PMhx/Soc Medical and Surgical Hx: pt denies Surgical Hx History of Surgery: No Anesthesia Reaction: No Hx Neurological Disorder: No Hx Respiratory Disorders: No Hx Cardiac Disorders: No Hx Psychiatric Problems: No Hx Miscellaneous Medical Probl: Yes (Anemia) Hx Alcohol Use: No Hx Substance Use: No Hx Tobacco Use: No Smoking Status: Never smoker FmHx Family History: No diabetes, No coronary disease, No other Physical Exam Vitals Vital Signs Date Temp Pulse Resp B/P (MAP) Pulse Ox O2 O2 Flow FiO2 Time Delivery Rate 01/31/19 97.9 72 18 100/55 100 Room Air 14:30 (70) 01/31/19 97.9 84 20 118/57 100 09:42 (77) Physical Exam Const: No acute distress Head: Atraumatic Eyes: Normal Conjunctiva ENT: Normal External Ears, Nose and Mouth. Neck: Full range of motion. No meningismus. Resp: Clear to auscultation bilaterally Cardio: Regular rate and rhythm, no murmurs Abd: Positive Manrique's. Diffuse abdominal tenderness to palpation without guarding or rigidity. Skin: No petechiae or rashes Back: No midline or flank tenderness Ext: No cyanosis, or edema Neur: Awake and alert Psych: Normal Mood and Affect Result Diagram: 01/31/19 1212 01/31/19 1212 Results 24 hrs Laboratory Tests Test 01/31/19 12:05 01/31/19 12:12 01/31/19 12:20 Urine Color YELLOW Urine Clarity SLIGHTLY CLOUDY Urine pH 7.0 Urine Specific [place] 1.005 Urine Ketones NEGATIVE mg/dL Urine Nitrite NEGATIVE mg/dL Urine Bilirubin NEGATIVE mg/dL Urine Urobilinogen NEGATIVE mg/dL Urine Leukocyte Esterase NEGATIVE Yajaira/ul Urine Microscopic RBC 39 /HPF Urine Microscopic WBC 1 /HPF Urine Squamous Epithelial Cells FEW /HPF Urine Bacteria FEW /HPF Urine Mucus FEW /HPF Urine Hemoglobin 3+ mg/dL Urine Glucose NEGATIVE mg/dL Urine Total Protein NEGATIVE mg/dl White Blood Count 5.9 10^3/ul Red Blood Count 4.48 10^6/ul Hemoglobin 12.3 g/dl Hematocrit 38.0 % Mean Corpuscular Volume 84.8 fl Mean Corpuscular Hemoglobin 27.5 pg Mean Corpuscular 32.4 g/dl Hemoglobin Concent Red Cell Distribution Width 13.2 % Platelet Count 263 10^3/UL Mean Platelet Volume 10.6 fl Immature Granulocytes % 0.200 % Neutrophils % % Segmented Neutrophils % (Manual) 46 % Band Neutrophils % (Manual) 3 % Lymphocytes % % Lymphocytes % (Manual) 42 % Reactive Lymphocytes % (Manual) 3 % Monocytes % % Monocytes % (Manual) 5 % Eosinophils % % Basophils % % Plasma Cells % (manual) 1 % Nucleated Red Blood Cells % 0.0 /100WBC Immature Granulocytes # 0.010 10^3/ul Neutrophils # 10^3/ul Neutrophils # (Manual) 2.7 10^3/ul Band Neutrophils # 0.1 10^3/ul Lymphocytes (Manual) 2.4 10^3/ul Lymphocytes # 10^3/ul Reactive Lymphocytes # 0.1 10^3/ul Monocytes # 10^3/ul Monocytes # (Manual) 0.2 10^3/ul Eosinophils # 10^3/ul Basophils # 10^3/ul Plasma Cells # (manual) 0.0 10^3/ul Nucleated Red Blood Cells # 10^3/ul Platelet Estimate NORMAL Hypochromasia 1+ Poikilocytosis 1+ Anisocytosis 1+ Microcytosis 1+ Ovalocytes 1+ Sodium Level 145 mmol/L Potassium Level 4.0 mmol/L Chloride Level 105 mmol/L Carbon Dioxide Level 29 mmol/L Anion Gap 11 Blood Urea Nitrogen 6 mg/dl Creatinine 0.60 mg/dl Est Glomerular Filtrat > 60 mL/min Rate mL/min Glucose Level 93 mg/dl Calcium Level 9.2 mg/dl Total Bilirubin 0.2 mg/dl Direct Bilirubin 0.00 mg/dl Indirect Bilirubin 0.2 mg/dl Aspartate Amino Transf (AST/SGOT) 19 IU/L Alanine 6 IU/L Aminotransferase (ALT/SGPT) Alkaline Phosphatase 79 IU/L Total Protein 8.8 g/dl Albumin 4.6 g/dl Globulin 4.20 g/dl Albumin/Globulin Ratio 1.09 Lipase 104 U/L POC Beta HCG, Qualitative NEGATIVE Current Medications Medications Dose Sig/Rubin Start Time Status Last (Trade) Ordered Route PRN Stop Time Admin Dose Reason Admin Sodium 1,000 ml @ Q1H STAT 01/31/19 DC 01/31/19 Chloride 1,000 mls/hr IV 11:59 01/31/19 12:10 12:58 40 ml ONCE STAT 01/31/19 DC 01/31/19 Miscellaneous PO 11:59 01/31/19 12:10 Medication 12:03 (Gi Cocktail (2)) Belladonna/ 2 tab ONCE STAT 01/31/19 DC 01/31/19 Phenobarbital PO 11:59 01/31/19 12:10 () 12:03 Procedures/MDM DIAGNOSTIC IMAGING REPORT Patient: CAMDEN LECHUGA : 1990 Age: 28 Sex: F MR #: [id number] DOS: 01/31/19 1159 Ordering MD: MARTY JIMENEZ Location: [facility] Room/Bed: PROCEDURE: US Abdomen (Right upper quadrant). CLINICAL INDICATION: Abdominal pain. TECHNIQUE: Multiple real-time longitudinal and transverse images were acquired of the patient's right upper quadrant using a curved array transducer. COMPARISON: None. FINDINGS: Liver: Normal echogenicity. Liver surface is smooth. No focal liver lesion. Portal vein is patent with normal directional flow. Gallbladder/biliary: No gallstones. No gallbladder wall thickening or pericholec ystic fluid. No biliary distension. Pancreas: Partially visualized but grossly unremarkable. Right kidney: Mild to moderate hydronephrosis. No nephrolithiasis. Ascites: None. Aorta/IVC: Unremarkable. MEASUREMENTS: Liver: 13.5 cm Common Duct: 0.5 cm Right Kidney: 9.5 cm IMPRESSION: 1. Mild to moderate right hydronephrosis. No nephrolithiasis. RPTAT: AA Physician Pramod Date Time Electronically viewed and signed by Juventino Auguste Physician on 01/31/2019 13:46 ME/ CC: MARTY JIMENEZ [phone] There is tenderness to palpation in the upper right quadrant on exam, so decision was made to order a gallbladder ultrasound. Results within normal limits except for mild hydronephrosis. This was with the patient and per my supervising physician recommendation, I advised the patient to follow-up with her primary care regarding hydronephrosis. Patient understood and agreed. I have low suspicion for nephrolithiasis given lack of flank pain and the fact the patient was on her period which accounts for the blood in the urine. At this time it seems that the patient's has invasive diarrhea which accounts for the blood in the diarrhea that she has seen and will be treated accordingly. Case was discussed with my supervising physician Dr. Almanza, and he recommended treating her with azithromycin as well as Flagyl. I have low suspicion for acute bowel, cholelithiasis, cholecystitis, bowel obstruction, appendicitis, pancreatitis, or any other emergent condition. Patient discharged with strict ER precautions. Patient advised to follow up with PMD. All questions answered at discharge. The patient has been prescribed Cuthbert during this encounter. The patient has been warned about the use of narcotics. The patient should not drive or operate heavy machinery while taking this medication. The patient was also warned about the addictive properties of narcotic medications. Narcan prescription was NOT provided given the following criteria 1. No more than 5 tablets of Cuthbert 10 mg or 10 tablets of Cuthbert 5 mg were prescribed. 2. Concomitant opiate and benzodiazepine prescriptions were not provided. 3. There is no obvious evidence of prior history of opiate abuse or overdose. Narcan prescription WAS provided given one of the following criteria were met. 1. More than 5 tablets of Cuthbert 10 mg or 10 tablets of Cuthbert 5 mg were prescribed. 2. Concomitant opiate and benzodiazepine prescriptions were provided. 3. There is evidence of prior history of opiate abuse or overdose. Departure Diagnosis: Primary Impression: Diarrhea Diarrhea type: presumed infectious Qualified Codes: R19.7 - Diarrhea, unspecified Condition: Stable MARTY JIMENEZ Jan 31, 2019 12:05
[2019-01-31] MEDS ORDERED: METR500T PO (14:17)
[2019-01-31] MEDS ORDERED: AZIT500T3 PO (14:17)
[2019-01-31] MEDS ORDERED: HYDR-4011 PO (14:20)
[2019-01-31 14:30] VITALS: BP 100/55; PULSE 72; RESP 18
== END 2019-01-31 14:31 | disposition home or self-care (01) ==
LOC: FTE 09:34
DX: R19.7 Diarrhea, unspecified (principal)
CPT/HCPCS: 76705; 80053; 81001; 81025; 83690; 85025; 96360; 96361; J7030; Z7502; Z7610